=== PATIENT | female | born 1995 | race Caucasian/White ===

== ENCOUNTER 2018-03-01 09:35 | Day surgery (SDC) | payer OTHER ==
[~2018-03-01 09:35] MED LIST: LIDOCAINE 1% PF 2 ML VIAL. ID; MORPHINE SULFATE 4 MG/ML DISP.SYRIN. IV; ONDANSETRON PF 4 MG/2 ML VIAL. IV; PROCHLORPERAZINE 10 MG/2 ML VIAL. IV; ceFAZolin 2GM PREMIX 2 GM/50 ML BAG IV; fentaNYL PF VIAL 100 MCG/2 ML VIAL IV
[2018-03-01] MEDS ORDERED: LIDOCAINE 1% PF 5 ML VIAL. (10:11)
[2018-03-01] MEDS ORDERED: PROPOFOL 20 ML IV (10:11)
[2018-03-01] MEDS ORDERED: fentaNYL PF VIAL 100 MCG/2 ML VIAL (10:11)
[2018-03-01] MEDS: IV RINGERS,LACTATED 1000ML 1,000 ML IV (10:30)
[2018-03-01] MEDS ORDERED: SEVOFLURANE 16 TO 30 MINUTES. IH (12:22)
[2018-03-01] MEDS ORDERED: ONDANSETRON PF 4 MG/2 ML VIAL. (12:22)
[2018-03-01] MEDS ORDERED: DEXAMETHASONE SOD PHOS 20 MG/5 ML VIAL. (12:22)
[2018-03-01] MEDS: fentaNYL PF VIAL 100 MCG/2 ML VIAL IV (13:00)
[2018-03-01] MEDS: oxyCODONE/APAP 5/325 1 TAB TABLET PO (13:44)
== END 2018-03-01 14:22 | disposition home or self-care (01) ==
LOC: SURG 09:35
DX: O03.4 Incomplete spontaneous abortion without complication (principal); Z3A.01 Less than 8 weeks gestation of pregnancy
CPT/HCPCS: 59812; J0690; J1100; J2405; J2704; J3010